=== PATIENT | female | born 1965 | race African-American/Black ===

== ENCOUNTER 2016-07-15 21:50 | Emergency (ER) | payer BC ==
[~2016-07-15] VITALS: Ht 167.6 cm; Wt 90.0 kg
[2016-07-15] MEDS ORDERED: ACETAMINOPHEN 325 MG TABLET PO ONE (22:15)
[2016-07-15 22:29] VITALS: BP 127/67
== END 2016-07-15 22:35 | disposition home or self-care (01) ==
LOC: EMS 21:52
DX: S29.012A Strain of muscle and tendon of back wall of thorax, initial encounter (principal); M25.561 Pain in right knee; M25.562 Pain in left knee; F12.90 Cannabis use, unspecified, uncomplicated; F17.210 Nicotine dependence, cigarettes, uncomplicated; V49.40XA Driver injured in collision with unspecified motor vehicles in traffic accident, initial encounter; Y93.89 Activity, other specified; Y92.89 Other specified places as the place of occurrence of the external cause; Y99.8 Other external cause status
CPT/HCPCS: 99283